=== PATIENT | male | born 1955 | race Caucasian/White ===

== ENCOUNTER 2016-10-19 13:53 | Inpatient (IN) | payer BC ==
--- NOTE | ~2016-10-19 | HP ---
Unit #: [id number] #: [id number] Patient: KARI GRIJALVA [id number] [address] [place], [place] [address] [id number] I MR#: [id number] NAME: KARI GRIJALVA. ROOM: 548 Age: 61 Sex: M Admission Date: 10/19/2016 : 1955 Attending Physician: Jadon Dean M.D. Primary Care Physician: Pretty Mendez M.D. HISTORY AND PHYSICAL HISTORY OF PRESENT ILLNESS This is a 61-year-old white male who had a presentation to the emergency room with chest pain. He says he began to have chest pain on Sunday that was located in his left inframammary region that he describes as an aching pain. There was radiation to the left neck and left shoulder. No radiation to his jaw. He denied dyspnea, dizziness, syncope or palpitations. He was unable to sleep on Sunday because of chest pain keeping him up all night. His chest pain was not worse with activity. He went to work yesterday, he became dizzy. Apparently, his blood pressure was taken and it was elevated at 137/101 mmHg. He noted his heart rate was fast at 157 beats per minute. He went to his primary care physician's office and EKG found him to be in atrial flutter with rapid ventricular response with a rate of 148 beats per minute. There were ST changes with ST depression. He was started on IV Cardizem bolus followed by infusion. Metoprolol was given for rate control. His blood pressure in the emergency room was 164/115 mmHg. Nifedipine was discontinued and he was started on lisinopril and Lasix for blood pressure control. Eliquis was started for anticoagulation. There is nondiagnostic elevation of troponin to 0.16. He has been diagnosed with hypertension for at least the last 5 years. Other risk factors for ischemic heart disease include nicotine abuse. He denies a history of diabetes, hyperlipidemia, and family history of premature coronary artery disease. PAST MEDICAL HISTORY 1. Hypertension. 2. Active smoker. PAST SURGICAL HISTORY 1. Sinus surgery. 2. Vasectomy. 3. Tonsillectomy. 4. Finger surgery. 5. Repair of fractured finger. HOME MEDICATIONS 1. Nifedipine 30 mg daily. 2. Aspirin 81 mg daily. ALLERGIES 1. Penicillin. 2. Sulfa. 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 He smokes Unit #: [id number] #: [id number] Patient: KARI GRIJALVA two packs of cigarettes daily for 40 years. He denies illicit drug and alcohol use. FAMILY HISTORY Father at age 37 from a presumed cerebral hemorrhage. REVIEW OF SYSTEMS CONSTITUTIONAL: Negative for fever or chills. Reports no weight loss or weight gain. No fatigue and weakness. HEENT: No headache, hearing or vision changes. No difficulty with swallowing. Positive for dizziness. CARDIOVASCULAR: His chest discomfort is described in the HPI. Unaware of palpitations. No paroxysmal nocturnal dyspnea or orthopnea. No syncope or near syncope. RESPIRATORY: Negative for dyspnea, cough or hemoptysis. GASTROINTESTINAL: No abdominal pain, nausea or vomiting. No constipation or melena. EXTREMITIES: Negative for lower extremity edema. PHYSICAL EXAMINATION VITAL SIGNS: Blood pressure 104/64, heart rate 153, temperature 97.4. GENERAL: This is a well-developed 61-year-old middle-aged male who is in no acute distress. NEUROLOGIC: He is awake, alert, and oriented without focal weaknesses. NECK: Trachea is midline. No thyromegaly or lymphadenopathy. No jugular venous distention. LUNGS: Diminished breath sounds without rales, rhonchi or wheezes. HEART: S1, S2. Heart sounds normal. No murmurs, rubs, or clicks. Regular rate and rhythm. ABDOMEN: Soft, nontender, with bowel sounds present. EXTREMITIES: Weak pedal pulses bilaterally. SKIN: Pale and dry. Noted for some mild discoloration in his lower extremities. DIAGNOSTIC STUDIES LABORATORY: Glucose 108, BUN 15, creatinine 0.9, sodium 143, potassium 4.3. CK total 100, MB 7.2, MB index 7.2, troponin less than 0.05 to 0.16 to 0.15 to 0.13. Cholesterol 182, triglycerides 102, LDL 129, HDL 33. TSH 1.62, free T4 0.87. White count 10.6, hemoglobin 18.6, hematocrit 55.8, platelet count is 294. IMAGING: Chest x-ray shows no active disease. CARDIOVASCULAR: Presenting EKG atrial flutter with a 2:1 conduction with a rate of 148 beats per minute with ST depression in the anterolateral leads. IMPRESSION 1. New-onset atrial flutter with 2:1 conduction with rapid ventricular response. 2. Uncontrolled hypertension. 3. Chest pain, atypical for significant ischemic heart disease. 4. Chronic obstructive pulmonary disease. 5. Peripheral artery disease. 6. Nicotine abuse. PLAN 1. Cardiology was asked to see the patient in the emergency room for Unit #: [id number] #: [id number] Patient: KARI GRIJALVA atrial flutter with rapid ventricular response. Will slow the heart rate with IV Cardizem drip and beta rowan. 2. Anticoagulate with Eliquis. 3. Troponin elevation is nondiagnostic for acute ischemic event. Will schedule the patient for exercise Cardiolite stress test to rule out coronary artery disease. 4. I have asked the patient to quit smoking. 5. TSH is normal. ADDENDUM The patient was given Lanoxin in addition to Cardizem and metoprolol for control of heart rate. He eventually converted to normal sinus rhythm. Repeat EKG shows incomplete right bundle branch block, otherwise normal. Echocardiogram was obtained which found the patient to have normal left ventricular systolic function with an ejection fraction of 60%. There was trace tricuspid regurgitation. He underwent exercise Cardiolite stress test where he had no stress-induced ischemia and normal left ventricular systolic function. The conscious sedation of Eliquis was obtain and is ten dollars per month, that is affordable. The patient can be discharged home today. Follow up with his primary care physician in two to four weeks. Follow up with Dr. Dean on 02/01/2017 at 12:30 p.m. DISCHARGE MEDICATIONS 1. Metoprolol 25 mg b.i.d. 2. Lasix 40 mg daily. 3. Lisinopril 20 mg daily. 4. Eliquis 5 mg b.i.d. 5. Nifedipine has been discontinued. DISCHARGE INSTRUCTIONS 1. The patient has been advised to quit smoking. 2. He may need further workup for possible peripheral arterial disease when seen in the office. 3. May return to work on Sunday, October 25, 2016 without restrictions. Dictated by Stephane Ware A.P.R.N. for Joshua Aviles/flo TD: 10/20/2016 20:28 JOB #: [id number] Unit #: [id number] #: [id number] Patient: KARI GRIJALVA HISTORY AND PHYSICAL X Stephane Ware APRN X HISTORY AND PHYSICAL
--- NOTE | ~2016-10-19 | CR72 ---
[facility] A Service of [facility] RADIOLOGY TEXT RESULTS PATIENT: KARI GRIJALVA LOCATION: [place] [address] : [birth year] UNIT #: [id number] AGE: [address]: Jadon Dean MD SEX: M ORDER DR: [id number] [facility] [address]. [place], [place] [address] [id number] I MR#: [id number] Acc #: [id number] NAME: KARI GRIJALVA. : 1955 SEX: M STUDY DATE/TIME: 10/19/2016 12:39 UNIT: CEDOF ROOM: 16195 STUDY DESCRIPTION: CR Chest Single View Portable Attending Physician: Jadon Dean M.D. Ordering Physician: Sharath Chavarria75 Dmitriy Izaguirre Primary Care Physician: Pretty Mendez M.D. MEDICAL IMAGING REPORT This report is preliminary unless electronic signature is present EXAM Portable chest 1 view 10/19/2016 COMPARISON 02/10/2016 HISTORY Chest pain for 2 days FINDINGS No acute abnormality. There is no infiltrate, effusion or pneumothorax. Heart size and pulmonary vascularity are within normal limits and there is no suspicious nodule. There is spinal degenerative change, but no apparent acute bony abnormality. IMPRESSION No acute disease. Dictated by... Figueroa Dawson M.D. THIS IS AN ELECTRONICALLY VERIFIED REPORT Figueroa Dawson M.D. at 10/20/2016 4:14 PM TEV/to TD: 10/19/2016 18:29 JOB #: [id number] MEDICAL IMAGING REPORT COPY
--- NOTE | ~2016-10-19 | EKG ---
PATIENT: KARI GRIJALVA UNIT #: [id number] Ventricular Rate: 148 BPM Atrial Rate: 296 BPM QRS Duration: 148 ms Q-T Interval: 332 ms QTC Calculation(Bezet): 521 ms P [place]: 264 degrees Calculated R [place]: 58 degrees Calculated T [place]: -57 degrees Diagnosis Line: Atrial flutter with 2:1 A-V conduction Diagnosis Line: Abnormal ECG Diagnosis Line: No previous ECGs available Diagnosis Line: Confirmed by LOI GUAMAN MD ([id number]) on 10/21/2016 Diagnosis Line: 7:37:40 AM INTERPRETING MD: ROWENA CHIRINOS
--- NOTE | ~2016-10-19 | TH ---
Unit #: [id number] #: [id number] Patient: KARI GRIJALVA [id number] [address] [address] [id number] I MR#: [id number] NAME: KARI GRIJALVA. : 1955 SEX: M STUDY DATE/TIME: 10/20/2016 UNIT: C5B ROOM: 548 STUDY DESCRIPTION: Attending Physician: Jadon Dean M.D. Primary Care Physician: Pretty Mendez M.D. CARDIOLOGY REPORT EXAM Exercise Cardiolite stress test, nuclear portion. PROCEDURE Using technetium 99m labeled Cardiolite, rest and stress SPECT images were obtained. Multiple SPECT images were obtained in various views including horizontal and vertical long axis and short axis views of the left ventricle. Images were obtained by gated SPECT method. The patient was administered 11.59 mCi of Cardiolite at rest. The patient was administered 31.5 mCi of Cardiolite at peak exercise. Total exercise time is 8 minutes and 30 seconds. On the stress images, there is normal perfusion noted. The rest images show normal perfusion. Comparing rest and stress images, there is no stress-induced ischemia noted. The left ventricular ejection fraction is calculated to be 67%. There is no focal wall motion abnormality seen. CONCLUSION 1. No stress-induced ischemia noted. 2. The left ventricular ejection fraction is calculated to be 67%. 3. There is no focal wall motion abnormality seen. 4. Normal exercise Cardiolite stress test. Dictated by... Joshua Sanches TD: 10/20/2016 16:58 JOB #: [id number] CARDIOLOGY REPORT X Stephanie Whelan MD <ELECTRONICALLY SIGNED> 02/24/17 1429 CARDIOLOGY REPORT
--- NOTE | ~2016-10-19 | ST ---
Unit #: [id number] #: [id number] Patient: KARI GRIJALVA [id number] [facility]. [address] [address] [id number] I MR#: [id number] NAME: KARI GRIJALVA. : 1955 SEX: M STUDY DATE/TIME: 10/20/2016 UNIT: C5B ROOM: 548 STUDY DESCRIPTION: Stress Test Attending Physician: Jadon Dean M.D. Primary Care Physician: Pretty Mendez M.D. CARDIOLOGY REPORT EXAM Stress Test REASON FOR EXAM Chest pain. DESCRIPTION Baseline EKG shows sinus bradycardia, rate of 54 beats/minute. Nonspecific ST-T wave abnormality is noted. The patient exercised on the treadmill according to Arie protocol for a total of 8 minutes 30 seconds achieving a maximum work level of 10.10 METs. Resting heart rate was 56 beats/minute carmencita to a maximal heart rate of 139 beats per minute. This value represents 86% of the maximum age-predicted heart rate. Resting blood pressure was 112/69 which carmencita to a maximum blood pressure of 170/80. The exercise test was stopped secondary to target heart rate achieved, shortness of breath and leg fatigue. During the exercise stress test, the patient did have some mild ST depression in the inferior lateral leads approximately 0.5 to 1 mm. During the exercise stress test, he did complain of shortness of breath as well as leg fatigue. However, the patient denied any complaints of chest pain. There were no arrhythmias. The test was stopped secondary to increasing shortness of breath and leg fatigue. IMPRESSION 1. Patient did have approximately 0.[address] segment depression in the inferior lateral leads of unclear significance. 2. No arrhythmias were noted during the exercise stress test. 3. Patient did complain of shortness of breath at peak exertion as well as leg fatigue. However, he denied any complaints of chest pain during the exercise stress test. 4. ST segments returned to baseline in the recovery period. 5. Please correlate with nuclear imaging. Unit #: [id number] #: [id number] Patient: KARI GRIJALVA Dictated by... Zuleyma Singer A.P.R.N. for Stephanie Whelan M.D. LMW/df TD: 10/20/2016 13:17 JOB #: [id number] CARDIOLOGY REPORT X Zuleyma Singer APRN CARDIOLOGY REPORT
--- NOTE | ~2016-10-19 | EKG ---
PATIENT: KARI GRIJALVA UNIT #: [id number] Ventricular Rate: 67 BPM Atrial Rate: 67 BPM P-R Interval: 160 ms QRS Duration: 100 ms Q-T Interval: 404 ms QTC Calculation(Bezet): 426 ms P [place]: 51 degrees Calculated R [place]: 47 degrees Calculated T [place]: 9 degrees Diagnosis Line: Normal sinus rhythm with sinus arrhythmia Diagnosis Line: Incomplete right bundle branch block Diagnosis Line: Borderline ECG Diagnosis Line: When compared with ECG of 19-OCT-2016 12:05, Diagnosis Line: (unconfirmed) Diagnosis Line: Sinus rhythm has replaced Atrial flutter Diagnosis Line: Vent. rate has decreased BY 81 BPM Diagnosis Line: Incomplete right bundle branch block has replaced Diagnosis Line: Non-specific intra-ventricular conduction block Diagnosis Line: ST no longer depressed in Inferior leads Diagnosis Line: Nonspecific T wave abnormality no longer evident Diagnosis Line: in Lateral leads Diagnosis Line: Confirmed by LOI GUAMAN MD ([id number]) on 10/21/2016 Diagnosis Line: 7:42:51 AM INTERPRETING MD: ROWENA CHIRINOS
[2016-10-19 12:50] LABS: POC - CKMB 5.2 ng/mL (0.0-7.9); POC - TROPONIN <0.05 ng/mL (<=0.05)
[2016-10-19 12:57] LABS: BASOPHIL% 0.4 % (0-2.5); EOSINOPHIL# 0.2 X10e3 (0-0.7); EOSINOPHIL% 2.3 % (0.0-7.0); HEMATOCRIT 55.8 % (38.0-50.0); HEMOGLOBIN 18.6 gm/dL (13.0-16.0); LYMPHOCYTE% 28.5 % (17.0-45.0); MEAN CELL VOLUME 95.6 FL (83-96); MEAN CORPUSCULAR HEMOGLOBIN 31.8 PG (28-34); MEAN CORPUSCULAR HGB CONC 33.3 g/dL (30-36); MEAN PLATELET VOLUME 7.9 FL (6.5-11.5); MONOCYTE# 0.9 X10e3 (0-1.0); MONOCYTE% 8.5 % (3.0-12.0); NEUTROPHIL# 6.4 X10e3 (1.5-7.1); NEUTROPHIL% 60.3 % (40-75); PLATELET COUNT 294 X10e3 (140-420); RED BLOOD COUNT 5.84 X10e (3.90-5.60); WHITE BLOOD COUNT 10.6 X10e3 (4.0-10.5)
[2016-10-19 12:58] LABS: DIFF IND NO
[2016-10-19 13:12] LABS: PARTIAL THROMBOPLASTIN TIME 26.7 SECONDS (23.5-31.3); PROTHROMBIN TIME (PATIENT) 10.3 SECONDS (9.6-11.5)
[2016-10-19 13:24] LABS: ALBUMIN SERUM 4.9 g/dL (3.5-5.0); ALKALINE PHOSPHATASE 63 U/L (32-92); ALT (SGPT) 22 U/L (10-40); AST (SGOT) 23 U/L (10-42); BILIRUBIN, DIRECT 0.1 mg/dL (0.0-0.2); BILIRUBIN,INDIRECT 0.8 mg/dL (0.0-0.9); BILIRUBIN,TOTAL 0.9 mg/dL (0.2-2.0); BLOOD UREA NITROGEN 15 mg/dL (9-23); BUN/CREATININE RATIO 16.66; CALCIUM SERUM 9.3 mg/dL (8.4-10.2); CARBON DIOXIDE 27 mmol/L (22-31); CHLORIDE 109 mmol/L (100-111); CREATININE SERUM 0.9 mg/dL (0.6-1.4); GLOM FILT RATE Estimated ABOVE60 mL/min (>60); GLUCOSE FASTING 108 mg/dL (70-110); POTASSIUM 4.3 mmol/L (3.5-5.1); PROTEIN TOTAL SERUM 7.8 g/dL (6.0-8.3); SODIUM 143 mmol/L (135-145)
[~2016-10-19 13:53] MED LIST: ADALATCC PO; AFEDITAB CR30 MG PO; BABY ASA PO; FLONASE16 GM
[2016-10-19] MEDS ORDERED: BAYER CHEWABLE81 MG PO (14:44)
[2016-10-19] MEDS ORDERED: NIFEDIAC CC60 MG PO (14:44)
[2016-10-19 14:58] LABS: CHOLESTEROL 182 mg/dL (0-200); HDL CHOLESTEROL 33 mg/dL (29-75); LDL CHOLESTEROL 129 mg/dL (-130); LDL/HDL RATIO 4 RATIO (0-4); TRIGLYCERIDES 102 mg/dL (10-160)
[2016-10-19 15:19] LABS: THYROID STIMULATING HORMONE 1.62 uIU/ml (0.34-5.60)
[2016-10-19 15:26] LABS: FREE THYROXIN (T4) 0.87 ng/dL (0.58-1.64)
[2016-10-19 15:53] LABS: POC - CKMB 4.1 ng/mL (0.0-7.9); POC - TROPONIN <0.05 ng/mL (<=0.05)
[2016-10-19 20:18] LABS: %MB 7.2 % (0.0-4.0); MB 7.2 ng/ml
[2016-10-20] MEDS ORDERED: ALLEGRA PO ×2 (00:32→16:35)
[2016-10-20] MEDS ORDERED: ACETAMINOPHEN325 MG PO (00:33)
[2016-10-20 01:57] LABS: %MB 6.1 % (0.0-4.0); MB 5.2 ng/ml
[2016-10-20 07:47] LABS: %MB 6.6 % (0.0-4.0); MB 5.2 ng/ml
[2016-10-20] MEDS ORDERED: ZYRTEC10 M1 PO (16:34)
[2016-10-20] MEDS ORDERED: LASIX (16:35)
[2016-10-20] MEDS ORDERED: METOPROLOL TAR25 MG PO (16:35)
[2016-10-20] MEDS ORDERED: LASIX PO (16:36)
[2016-10-20] MEDS ORDERED: LISINOPRIL20 MG PO (16:37)
[2016-10-20] MEDS ORDERED: ELIQUIS5 MG PO (16:48)
== END 2016-10-20 17:10 | disposition home or self-care (01) | DRG 310 ==
LOC: CED 13:53 → CEDOF 13:54 → C5B 19:55
PROVIDERS: Emergency Medicine; Internal Medicine Cardiovascular Disease
PROC: B246ZZZ Ultrasonography of Right and Left Heart (ICD-10-PCS; principal; 2016-10-20)
DX: I48.92 Unspecified atrial flutter (principal); I10 Essential (primary) hypertension; J44.9 Chronic obstructive pulmonary disease, unspecified; F17.210 Nicotine dependence, cigarettes, uncomplicated; Z71.6 Tobacco abuse counseling; Z98.52 Vasectomy status; Z79.82 Long term (current) use of aspirin; Z88.0 Allergy status to penicillin; Z88.2 Allergy status to sulfonamides; R07.89 Other chest pain; I73.9 Peripheral vascular disease, unspecified; I25.9 Chronic ischemic heart disease, unspecified
CPT/HCPCS: 71010; 78452; 80048; 80061; 80076; 82550; 82553; 83880; 84439; 84443; 84484; 85025; 85610; 85730; 93005; 93017; 93306; 99291; A9500; J1160; J1940